=== PATIENT | female | born 1955 | race Caucasian/White ===

== ENCOUNTER → 2017-05-12 | Outpatient (CLI) | payer OTHER | LOC: BMCIMAGING 12:40 | PROVIDERS: ATTEND Obstetrics & Gynecology | DX: Z12.31 Encounter for screening mammogram for malignant neoplasm of breast (principal); Z80.3 Family history of malignant neoplasm of breast | CPT/HCPCS: G0202 ==

== ENCOUNTER 2017-11-24 18:11 | Emergency (ER) | payer OTHER ==
[2017-11-24 18:18] VITALS: TEMP 98.6
--- NOTE | 2017-11-24 18:47 | EDPHY ---
HPI/HX/ROS/PE/MDM - Data Points Imaging: Discussed imaging studies w/ framing manager Radiologist Narrative: CHIEF COMPLAINT: Vertebrae fracture, leg weakness HPI: This patient is a 61 year old female presenting at the request of her primary care provider, Dr. Weinstein, for evaluation of bilateral leg weakness. On July 11 , she had a fall and was diagnosed with C7-T1 fracture by x-ray. She has had chronic neck pain since that time. For the past two weeks, she has had intermittent weakness and achiness in her legs. This began suddenly on waking one morning after feeling well the night before. She feels like she does not have the "power" in her upper legs that she usually does. She has had increased back pain and endorses pain in her buttocks. Her symptoms are resolved with Diclofenac. She has not taken any other pain medications. She denies any other recent falls or trauma. No fever, shortness of breath, incontinence, numbness or paresthesias, or other associated symptoms. REVIEW OF SYSTEMS: Aside from elements discussed in the HPI, a comprehensive 10-point review of systems was reviewed and is negative. PMH: Denies. SOCIAL HISTORY: . at bedside. Lives in [place]. PHYSICAL EXAM: General:Patient is alert, in no acute distress. ENT:Eyes are normal to inspection. ENT inspection normal. Neck: Cervical collar in place. Respiratory:No respiratory distress. Breath sounds normal bilaterally. Cardiovascular: Regular rate and rhythm. Strong peripheral pulses. Normal cap refill. Abdomen:The abdomen is nontender to palpation. There are no peritoneal signs. There are normal bowel sounds. Back: Normal to inspection. No tenderness to palpation. Skin: Normal color. No rash. Warm and dry. Extremities: Normal appearance. Full range of motion. Neuro: Oriented x3. Normal motor function. Normal sensory function. (Morales Ramos) ED Course: 61 y/o female presents with two week history of lower extremity weakness as well as chronic neck pain. C-collar in place. Plan for MRI c-spine for further evaluation. (Morales Ramos) 2029: I assumed care of this patient from Dr. Ramos at shift change. 2044: Spoke with Dr. Acosta, radiologist. He reports the patient has a C7 compression fracture with a retropulsed fragment touching the anterior cord. No evidence of cord edema or signal change in the cord. Neurosurgery will be consulted. 2047: Consulted with Dr. Cruz, neurosurgeon, regarding this patient. He agrees to consult on this patient. 2056: Consulted with Dr. Cruz, he would like the patient to be placed in a [place] J. He believes the patient has ample room in her spinal canal. He will see this patient as an outpatient. 2114: Reassessed patient and discussed outpatient followup with Dr. Cruz; she is comfortable with this plan. Return precautions provided. (Dontrell Olmos) - Data Points Imaging Results: Imaging Impressions Cervical Spine MRI 11/24/17 18:56 Impression: 1. Acute or subacute compression fracture of C7 with mild posterior displacement of the superior aspect of C7 resulting in mild flattening and posterior displacement of the cervical spinal cord without canal stenosis. 2. See above report for findings at specific levels. Results called and discussed with Morales Ramos MD on 11/24/2017 20:43 General Time Seen by Provider: 11/24/17 18:27 Initial Vital Signs: Initial Vital Signs Temperature (C) 37.0 C 11/24/17 18:14 Heart Rate 81 11/24/17 18:14 Respiratory Rate 16 11/24/17 18:14 Blood Pressure 139/81 H 11/24/17 18:14 O2 Sat (%) 97 11/24/17 18:14 O2 Delivery Mode Room Air Allergies/Adverse Reactions: No Known Allergies Allergy (Verified 11/24/17 18:13) Home Medications: Medication Instructions Recorded NK [No Known Home Meds] 11/24/17 Departure - Departure Disposition: Home, Routine, Self-Care Clinical Impression: Compression fracture of C-spine Qualifiers: Encounter type: initial encounter Qualified Code(s): S12.9XXA - Fracture of neck, unspecified, initial encounter Condition: Good Instructions: Cervical Fracture (ED), [place] J Collar (ED) Additional Instructions: 1. Wear your brace at all times. 2. Followup with Dr. Cruz, neurosurgeon, within one week. 3. Return to the emergency department for severe pain, fever, numbness, difficulty walking, change in location or nature of pain or other concerns. Referrals: XAVI WEINSTEIN [Primary Care Provider] - As per Instructions Kanu rCuz MD [Medical Doctor] - As per Instructions Report Scribed for: Morales Ramos Report Scribed by: Marylou Pearson Date of Report: 11/24/17 Time of Report: 18:47 Physician Review and Approval Statement: Portions of this note were transcribed by an ED scribe. I personally performed the history, physical exam, and medical decision making; and confirm the accuracy of the information in the transcribed note.
[2017-11-24 19:38] VITALS: RESP 20
[2017-11-24 21:44] VITALS: BP 162/87; PULSE 87; O2SAT 94
== END 2017-11-24 21:45 | disposition home or self-care (01) ==
DX: S12.9XXA Fracture of neck, unspecified, initial encounter (principal); W19.XXXA Unspecified fall, initial encounter
CPT/HCPCS: L0174

== ENCOUNTER → 2017-11-24 | Outpatient (CLI) | payer OTHER | LOC: FIMAGING 15:33 | PROVIDERS: ATTEND Family Medicine | DX: S22.010A Wedge compression fracture of first thoracic vertebra, initial encounter for closed fracture (principal); M43.9 Deforming dorsopathy, unspecified ==

== ENCOUNTER → 2017-12-06 | Outpatient (CLI) | payer OTHER | LOC: FIMAGING 09:50 | PROVIDERS: ATTEND Neurological Surgery | DX: M54.9 Dorsalgia, unspecified (principal); M51.36 Other intervertebral disc degeneration, lumbar region; M51.26 Other intervertebral disc displacement, lumbar region; M48.061 Spinal stenosis, lumbar region without neurogenic claudication; M48.54XD Collapsed vertebra, not elsewhere classified, thoracic region, subsequent encounter for fracture with routine healing; M51.24 Other intervertebral disc displacement, thoracic region; R93.7 Abnormal findings on diagnostic imaging of other parts of musculoskeletal system ==

== ENCOUNTER → 2017-12-26 | Outpatient (CLI) | payer OTHER ==
[~2017-12-26] MED LIST: GADOBUTROL 10 ML VIAL IVP ONE
== END ==
LOC: FIMAGING 06:36
PROVIDERS: ATTEND Physician Assistant Surgical
DX: M53.82 Other specified dorsopathies, cervical region (principal); M48.07 Spinal stenosis, lumbosacral region; M51.37 Other intervertebral disc degeneration, lumbosacral region; M51.84 Other intervertebral disc disorders, thoracic region; C50.919 Malignant neoplasm of unspecified site of unspecified female breast
CPT/HCPCS: A9585

== ENCOUNTER → 2018-01-05 | Outpatient (CLI) | payer OTHER | LOC: FIMAGING 09:30 | PROVIDERS: ATTEND Family Medicine | DX: Z13.820 Encounter for screening for osteoporosis (principal); M81.0 Age-related osteoporosis without current pathological fracture; Z78.0 Asymptomatic menopausal state ==

== ENCOUNTER → 2018-02-20 | Outpatient (CLI) | payer OTHER | LOC: BMCIMAGING 15:31 | PROVIDERS: ATTEND Internal Medicine Rheumatology | DX: Z13.83 Encounter for screening for respiratory disorder NEC (principal) ==

== ENCOUNTER → 2018-11-17 | Outpatient (CLI) | payer OTHER | LOC: BMCIMAGING 13:10 | PROVIDERS: ATTEND Family Medicine | DX: Z12.31 Encounter for screening mammogram for malignant neoplasm of breast (principal) ==